=== PATIENT | male | born 1965 | race Caucasian/White ===

== ENCOUNTER 2018-06-06 10:36 | Emergency (ER) | payer BC ==
--- NOTE | 2018-06-06 11:13 | ER Document Report ---
ED Medical Screen (RME) - General Chief Complaint: Anxiety Stated Complaint: PANIC ATTACKS Time Seen by Provider: 06/06/18 11:06 Mode of Arrival: Ambulatory Information source: Patient, Relative TRAVEL OUTSIDE OF THE [place] IN LAST 30 DAYS: No - HPI Patient complains to provider of: psycvh issues Onset: Other - pt. with h/o panic attacks with worsening anxiety for the past few days. Denies SI, HI - Related Data Allergies/Adverse Reactions: No Known Allergies Allergy (Unverified 06/06/18 10:38) Physical Exam - Vital signs Vitals: Temp Pulse Resp BP Pulse Ox 97.8 F 76 18 163/104 H 97 06/06/18 10:43 06/06/18 10:43 06/06/18 10:43 06/06/18 10:43 06/06/18 10:43 Course - Vital Signs Vital signs: Temp Pulse Resp BP Pulse Ox 97.8 F 76 18 163/104 H 97 06/06/18 10:43 06/06/18 10:43 06/06/18 10:43 06/06/18 10:43 06/06/18 10:43
--- NOTE | 2018-06-06 11:46 | PSYCHOLOGICAL NOTE ---
Psych Note - Psych Note Date seen by psych provider: 06/06/18 Time seen by psych provider: 11:20 Psych Note: Reason for Consult: panic attack Consent permissions: Patient's significant other at bedside per patient's request Pt presents to the ED with complaints of a panic attack. Pt claims he woke up at 0300 this morning with appears to be a panic attack. Pt claims a history of anxiety but is not on any medications. Pt claims ringing in his ears, spinning sensation and "cannot breathe good." Pt claims he feels "like I have to run." Upon evaluation patient is no longer in a panic attack. He patient's face is flushed. He discloses that he came to [facility] for a short vacation. He is from [facility]. He discloses that normally when he has a panic attack it is from gas in his stomach and is able to get rid of the gas so his anxiety decreases. He reports that he has been unable to do this today. He states that since approximately 3:00 this morning he has been walking and talking trying to get rid of the anxiety. He reports that he is fine if he is doing that however when he tries to lay down he is unable to breathe. He confirms he has COPD. When discussing medication options he reports that BuSpar has not worked in the past and the only thing he has helped him is Xanax. He reports he cannot have Xanax because he is in pain management. Patient is alert and orientated to person and place, time and circumstance. Mood is overall euthymic with congruent affect: Some anxiousness is noted. Patient denies suicidal homicidal ideation. Delusions are absent behaviors congruent with an intact reality based presentation i.e. organized and linear thought process. Eye contact is well-maintained. Conversational speech is within normal rate, tone and prosody. Intellectual abilities appear to be within the average range. Attention and concentration are good. Insight, judgment, impulse control are good. No medication recommendations at this time 300.00 (F41.9) unspecified anxiety disorder per history provided by patient Impression\\plan: Patient is cleared from acute psychiatric services. [facility] because of panic attack he was feeling. Reports panic attack has subsided. Patient is from [facility] and is only here for a short vacation. He is recommended to follow-up with his outpatient mental health providers upon returning home. Dr. Louis was consulted to care management this patient; attending physicians in agreement with recommendations and disposition.
[2018-06-06 11:57] LABS: ABSOLUTE BASOPHILS # (AUTO) 0.1 10^3/uL (0.0-0.2); ABSOLUTE EOSINOPHILS # (AUTO) 0.1 10^3/uL (0.0-0.6); ABSOLUTE LYMPHOCYTES (AUTO) 2.3 10^3/uL (0.5-4.7); ABSOLUTE MONOCYTES (AUTO) 0.5 10^3/uL (0.1-1.4); ABSOLUTE NEUT (AUTO) 8.6 10^3/uL (1.7-8.2); BASOPHILS % (AUTO) 0.5 % (0-2); EOSINOPHILS % (AUTO) 0.8 % (0-6); LYMPHOCYTES % (AUTO) 19.9 % (13-45); MEAN CORPUSCULAR HEMOGLOBIN 31.9 pg (27.0-33.4); MEAN CORPUSCULAR HGB CONC 35.4 g/dL (32.0-36.0); MEAN CORPUSCULAR VOLUME 90 fl (80-97); MONOCYTES % (AUTO) 4.2 % (3-13); PLATELET COUNT 222 10^3/uL (150-450); RED BLOOD COUNT 6.25 10^6/uL (4.35-5.55); RED CELL DISTRIBUTION WIDTH 13.1 % (11.5-14.0); SEGMENTED NEUTROPHILS % (AUTO) 74.6 % (42-78); TOTAL CELLS COUNTED % (AUTO) 100 %; WHITE BLOOD COUNT 11.5 10^3/uL (4.0-10.5)
[2018-06-06 12:03] VITALS: BP 169/97
[2018-06-06 12:06] LABS: ALANINE AMINOTRANSFERASE 70 U/L (21-72); ALBUMIN 4.7 g/dL (3.5-5.0); ALKALINE PHOSPHATASE 58 U/L (38-126); ANION GAP 11 (5-19); ASPARTATE AMINO TRANSFERASE 39 U/L (17-59); BILIRUBIN,DIRECT 0.4 mg/dL (0.0-0.4); BILIRUBIN,TOTAL 0.8 mg/dL (0.2-1.3); BLOOD UREA NITROGEN 25 mg/dL (7-20); CALCIUM 10.2 mg/dL (8.4-10.2); CARBON DIOXIDE 27 mmol/L (22-30); CHLORIDE 100 mmol/L (98-107); GLUCOSE 105 mg/dL (75-110); POTASSIUM 3.9 mmol/L (3.6-5.0); SODIUM 137.6 mmol/L (137-145); TOTAL PROTEIN 8.3 g/dL (6.3-8.2)
[2018-06-06 12:07] LABS: APPEARANCE,URINE CLEAR; BILIRUBIN,URINE NEGATIVE (NEGATIVE); COLOR,URINE YELLOW; GLUCOSE, URINE NEGATIVE (NEGATIVE); KETONES,URINE NEGATIVE (NEGATIVE); LEUKOCYTE ESTERASE,URINE NEGATIVE (NEGATIVE); NITRITE,URINE NEGATIVE (NEGATIVE); PROTEIN,URINE NEGATIVE (NEGATIVE); URINE SPECIFIC GRAVITY 1.012; UROBILINOGEN,URINE NEGATIVE mg/dL (<2.0)
[2018-06-06 12:08] LABS: ALCOHOL < 10 mg/dL (NONE DETECTED)
[2018-06-06 12:13] LABS: HEMATOCRIT 56.4 % (37.9-51.0)
[2018-06-06 12:21] LABS: URINE AMPHETAMINES SCREEN NEGATIVE; URINE BARBITURATES SCREEN NEGATIVE; URINE BENZODIAZEPINES SCREEN NEGATIVE; URINE COCAINE SCREEN NEGATIVE; URINE MARIJUANA (THC) SCREEN NEGATIVE; URINE METHADONE SCREEN NEGATIVE; URINE PHENCYCLIDINE SCREEN NEGATIVE
--- NOTE | 2018-06-06 20:46 | ER Document Report ---
Entered by JENNY ROUSE SCRIBE 06/06/18 1145 Acting as scribe for:KIRSTIE NDIAYE MD ED General <CLAIREUSMAN - Last Filed: 06/06/18 11:46> - General Mode of Arrival: Ambulatory Information source: Patient TRAVEL OUTSIDE OF THE [place] IN LAST 30 DAYS: No <KIRSTIE NDIAYE - Last Filed: 06/06/18 19:16> - General Chief Complaint: Anxiety Stated Complaint: PANIC ATTACKS Time Seen by Provider: 06/06/18 11:06 Notes: Patient is a 53 year old male with ADHD, depression, HTN, COPD presents to the emergency department complaining of increased anxiety onset 2 days ago. Patient states he normally develops anxiety when he has gas that he is unable to dispel via belching. He states he also there are other reasons for increased anxiety, but gas is the most common reason. He states he is here in [facility]. Patient states Xanax is the only medication that usually helps with his anxiety although he no longer takes it due to also being on pain medications. (JENNY ROUSE) Patient is a 53 year old male with ADHD, depression, HTN, COPD presents to the emergency department complaining of increased anxiety onset 2 days ago. Patient states he normally develops anxiety when he has gas that he is unable to dispel via belching. He states he also there are other reasons for increased anxiety, but gas is the most common reason. He states he is here in [facility]. Patient states Xanax is the only medication that usually helps with his anxiety although he no longer takes it due to also being on pain medications. (KIRSTIE NDIAYE) - Related Data Allergies/Adverse Reactions: No Known Allergies Allergy (Unverified 06/06/18 10:38) Past Medical History - General Information source: Patient, Relative - Social History Smoking Status: Current Every Day Smoker Family History: Reviewed & Not Pertinent Patient has suicidal ideation: No Patient has homicidal ideation: No - Past Medical History Cardiac Medical History: Reports: Hx Hypertension Psychiatric Medical History: Reports: Hx Attention Deficit Hyperactivity Disorder <KIRSTIE NDIAYE - Last Filed: 06/06/18 19:16> Review of Systems - Review of Systems Constitutional: No symptoms reported EENT: No symptoms reported Cardiovascular: No symptoms reported Respiratory: No symptoms reported Gastrointestinal: No symptoms reported Genitourinary: No symptoms reported Musculoskeletal: No symptoms reported Skin: No symptoms reported Hematologic/Lymphatic: No symptoms reported Neurological/Psychological: See HPI, Anxiety -: Yes All other systems reviewed and negative <KIRSTIE NDIAYE - Last Filed: 06/06/18 19:16> Physical Exam <KIRSTIE NDIAYE - Last Filed: 06/06/18 19:16> - Vital signs Vitals: Temp Pulse Resp BP Pulse Ox 97.8 F 76 18 163/104 H 97 06/06/18 10:43 06/06/18 10:43 06/06/18 10:43 06/06/18 10:43 06/06/18 10:43 - Notes Notes: GENERAL: Alert, interacts well. No acute distress. HEAD: Normocephalic, atraumatic. EYES: Pupils equal, round, and reactive to light. Extraocular movements intact. ENT: Oral mucosa moist, tongue midline. NECK: Full range of motion. Supple. Trachea midline. LUNGS: Clear to auscultation bilaterally, no wheezes, rales, or rhonchi. No respiratory distress. HEART: Regular rate and rhythm. No murmurs, gallops, or rubs. ABDOMEN: Soft, non-tender. Non-distended. Bowel sounds present in all 4 quadrants. No guarding, rigidity, or rebound. EXTREMITIES: Moves all 4 extremities spontaneously. NEUROLOGICAL: Alert and oriented x3. Normal speech. PSYCH: Normal affect, normal mood. SKIN: Warm, dry, normal turgor. No rashes or lesions noted. (JENNY ROUSE) GENERAL: Alert, interacts well. No acute distress. HEAD: Normocephalic, atraumatic. EYES: Pupils equal, round, and reactive to light. Extraocular movements intact. ENT: Oral mucosa moist, tongue midline. NECK: Full range of motion. Supple. Trachea midline. LUNGS: No respiratory distress. HEART: Regular rate and rhythm. ABDOMEN: Normal appearance. EXTREMITIES: Moves all 4 extremities spontaneously. NEUROLOGICAL: Alert and oriented x3. Normal speech. PSYCH: Normal affect, normal mood. SKIN: Warm, dry, normal turgor. No rashes or lesions noted. (KIRSTIE NDIAYE) Course - Laboratory Result Diagrams: 06/06/18 11:40 06/06/18 11:40 <USMAN CLAIRE - Last Filed: 06/06/18 11:46> - Laboratory Result Diagrams: 06/06/18 11:40 06/06/18 11:40 <KIRSTIE NDIAYE - Last Filed: 06/06/18 19:16> - Re-evaluation Re-evalutation: 06/06/18 18:48 I was reviewing chart as well as nearing the end of my shift and found that this patient had lab work done I was not aware of. In reviewing this lab work I fou nd the patient has extreme polycythemia. I called the patient to inform him of this finding, and his girlfriend answered, telling me that they were at [facility] emergency room as he had developed similar symptoms and was being checked into the emergency room. I did discuss and report the lab findings to nurse in triage who reported that he had had an EKG and was getting ready to have his blood drawn at that time. Unsure that she provided that information to the provider who was going to see the patient. (KIRSTIE NDIAYE) - Vital Signs Vital signs: Temp Pulse Resp BP Pulse Ox 98.0 F 77 18 169/97 H 96 06/06/18 12:02 06/06/18 12:02 06/06/18 12:02 06/06/18 12:02 06/06/18 12:02 - Laboratory Laboratory results interpreted by me: 06/06/18 06/06/18 06/06/18 11:40 11:40 11:40 WBC 11.5 H RBC 6.25 H Hgb 20.0 H* Hct 56.4 H Absolute Neutrophils 8.6 H BUN 25 H Total Protein 8.3 H Urine Blood SMALL H Discharge <USMAN CLAIRE - Last Filed: 06/06/18 11:46> <KIRSTIE NDIAYE - Last Filed: 06/06/18 19:16> - Discharge Clinical Impression: Panic attack Condition: Stable Disposition: HOME, SELF-CARE Instructions: Anxiety (OM) Additional Instructions: You have been evaluated both medical and behavioral health teams have been katerin med appropriate for discharge. You are highly encouraged to follow-up with your outpatient providers upon returning home to discuss your increased anxiety. Panic Attack The cause of panic attacks is unknown. Symptoms can include chest pain, shortness of breath, palpitations, sweats, and a sense of smothering or impending doom. In time, the panic attacks can lead to generalized anxiety and phobias. Because the symptoms can mimic heart attack, pulmonary embolism, and other serious diseases, the physician has evaluated you for these conditions. There is no evidence of a serious problem. An acute panic attack usually goes away by itself without treatment. A severe attack can be treated with medicine to calm you. Long-term, antidepressant medicines may help prevent attacks. Counselling can also be very beneficial in dealing with panic attacks. Panic attacks are less likely if you are getting regular exercise, proper diet, and plenty of sleep. It's normal for panic attacks to cause many frightening symptoms. However, you should call or return if your symptoms change significantly or if you are worsening. Scribe Attestation: 06/06/18 11:50 I personally performed the services described in the documentation, reviewed and edited the documentation which was dictated to the scribe in my presence, and it accurately records my words and actions. (KIRSTIE NDIAYE) I personally performed the services described in the documentation, reviewed and edited the documentation which was dictated to the scribe in my presence, and it accurately records my words and actions.
--- NOTE | 2018-06-07 16:12 | PSYCHOLOGICAL NOTE ---
Psych Note - Psych Note Date seen by psych provider: 06/07/18 Time seen by psych provider: 10:45 Psych Note: Patient discharged prior to being seen.
== END 2018-06-06 12:02 | disposition home or self-care (01) ==
LOC: ER 10:36
DX: F41.0 Panic disorder [episodic paroxysmal anxiety] (principal); D75.1 Secondary polycythemia; F41.9 Anxiety disorder, unspecified; I10 Essential (primary) hypertension; J44.9 Chronic obstructive pulmonary disease, unspecified; F17.200 Nicotine dependence, unspecified, uncomplicated; Z79.899 Other long term (current) drug therapy
CPT/HCPCS: 36415; 80053; 80307; 81001; 84443; 85025; 99284